=== PATIENT | female | born 1970 | race Two or more races ===

== ENCOUNTER 2023-11-02 12:47 | Inpatient (IN) | payer OTHER ==
[~2023-11-02] VITALS: Ht 162.6 cm; Wt 90.7 kg
[2023-11-02] MEDS ORDERED: LORAZEPAM 1 MG TABLET FOR AGITATION PO PRN (15:00)
[2023-11-02 16:00] VITALS: BP 118/77; TEMP 98.4; O2SAT 100
[2023-11-02 20:00] VITALS: BP 124/90; TEMP 98.2; O2SAT 100
[2023-11-02] MEDS: RISPERIDONE 2 MG PO SCH (21:16)
[2023-11-02] MEDS ORDERED: ZOLPIDEM TARTRATE 10 MG TABLET PO PRN (22:00)
[2023-11-03] MEDS: LEVOTHYROXINE 0.125 MG PO SCH (07:58)
[2023-11-03] MEDS: METOPROLOL 50 MG PO SCH (07:58)
[2023-11-03 08:00] VITALS: BP 135/88; TEMP 97.9; O2SAT 99
[2023-11-03] MEDS: HOME MED MISC AMLODIPINE 10MG PO SCH (08:27)
[2023-11-03 16:00] VITALS: BP 119/89; TEMP 98; O2SAT 100
[2023-11-03 20:00] VITALS: BP 134/95; TEMP 97.6; O2SAT 100
[2023-11-04 08:00] VITALS: BP 138/95; TEMP 98; O2SAT 99
[2023-11-04 20:00] VITALS: BP 130/87; TEMP 98.1; O2SAT 98
[2023-11-05 08:00] VITALS: BP 133/95; TEMP 97.9; O2SAT 98
[2023-11-05 20:34] VITALS: BP 124/87; TEMP 97.9; O2SAT 100
[2023-11-05] MEDS: RISPERDONE PO SCH (22:00)
[2023-11-06 08:00] VITALS: BP 115/81; TEMP 97.7; O2SAT 100
[2023-11-06 20:43] VITALS: BP 129/86; TEMP 97.9; O2SAT 100
[2023-11-07 08:00] VITALS: BP 130/90; TEMP 97.7; O2SAT 99
[2023-11-07 22:11] VITALS: BP 128/90; TEMP 97.9; O2SAT 99
[2023-11-08 08:00] VITALS: BP 127/91; TEMP 98.8; O2SAT 98
[2023-11-08 20:22] VITALS: BP 130/91; TEMP 98.2; O2SAT 98
[2023-11-08] MEDS: RISPERDONE PO SCH (21:05)
[2023-11-09 08:00] VITALS: BP 119/88; TEMP 97.8; O2SAT 98
[2023-11-09 16:00] VITALS: BP 124/88; TEMP 97.7; O2SAT 100
[2023-11-09 20:00] VITALS: BP 136/96; TEMP 98.1; O2SAT 97
[2023-11-10 08:00] VITALS: BP 142/91; TEMP 97.8; O2SAT 98
[2023-11-10] MEDS: HOME MED MISC AMLODIPINE 10MG PO SCH (08:33)
[2023-11-10 16:00] VITALS: BP 128/97; TEMP 97.3; O2SAT 97
[2023-11-10 20:00] VITALS: BP 122/95; TEMP 98.4; O2SAT 100
[2023-11-11 08:00] VITALS: BP 133/90; TEMP 97.8; O2SAT 98
[2023-11-11 20:13] VITALS: BP 136/86; TEMP 97.9; O2SAT 100
[2023-11-12 08:30] VITALS: BP 148/89; TEMP 97.9; O2SAT 99
[2023-11-12 20:00] VITALS: BP_SYST 139; BP_SYST 144; BP_DIAS 74; BP_DIAS 93; TEMP 97.5; O2SAT 100; O2SAT 97
[2023-11-13 08:00] VITALS: BP 134/99; TEMP 97.5; O2SAT 98
[2023-11-13 09:00] VITALS: BP 150/70; O2SAT 95
[2023-11-13 13:00] VITALS: BP 132/86; O2SAT 96
[2023-11-13 16:00] VITALS: BP 119/68; TEMP 97.5; O2SAT 99
[2023-11-13 20:00] VITALS: BP 129/99; TEMP 98.4; O2SAT 97
[2023-11-14 07:30] VITALS: BP 136/90; TEMP 97.9; O2SAT 100
[2023-11-17] MEDS ORDERED: LORAZEPAM 1 MG TABLET FOR AGITATION PO PRN (13:00)
[2023-11-17] MEDS ORDERED: ZOLPIDEM TARTRATE 10 MG TABLET PO PRN (13:00)
[2023-11-18] MEDS ORDERED: INVEST MED CVL-231-2002 PO SCH (10:00)
[2023-11-18] MEDS ORDERED: IBUPROFEN 200 MG TABLET PO PRN (15:00)
[2023-11-18] MEDS ORDERED: ACETAMINOPHEN ES 500 MG TABLET PO PRN (15:00)
[2023-11-18] MEDS ORDERED: MAG HYDROX/AL HYDROX/SIMETH 30 ML UDC PO PRN (15:00)
[2023-11-18] MEDS ORDERED: MAGNESIUM HYDROXIDE 30 ML UDC PO PRN (15:00)
[2023-11-23] MEDS ORDERED: LORAZEPAM 1 MG TABLET FOR AGITATION PO PRN (13:00)
[2023-11-23] MEDS ORDERED: ZOLPIDEM TARTRATE 10 MG TABLET PO PRN (13:00)
[2023-11-30] MEDS ORDERED: ZOLPIDEM TARTRATE 10 MG TABLET PO PRN (13:00)
[2023-11-30] MEDS ORDERED: LORAZEPAM 1 MG TABLET FOR AGITATION PO PRN (13:00)
[2023-12-08] MEDS ORDERED: LORAZEPAM 1 MG TABLET FOR AGITATION PO PRN (13:00)
[2023-12-08] MEDS ORDERED: ZOLPIDEM TARTRATE 10 MG TABLET PO PRN (13:00)
[2023-12-15] MEDS ORDERED: ZOLPIDEM TARTRATE 10 MG TABLET PO PRN (13:00)
[2023-12-15] MEDS ORDERED: LORAZEPAM 1 MG TABLET FOR AGITATION PO PRN (13:00)
[2023-12-22] MEDS ORDERED: ZOLPIDEM TARTRATE 10 MG TABLET PO PRN (13:00)
[2023-12-22] MEDS ORDERED: LORAZEPAM 1 MG TABLET FOR AGITATION PO PRN (13:00)
[2023-12-29] MEDS ORDERED: ZOLPIDEM TARTRATE 10 MG TABLET PO PRN (13:00)
[2023-12-29] MEDS ORDERED: LORAZEPAM 1 MG TABLET FOR AGITATION PO PRN (13:00)
== END 2023-11-14 10:55 | disposition home or self-care (01) | DRG 951 ==
LOC: GPS 14:36 → MED 11-12 07:02
PROVIDERS: ADMIT Psychiatry & Neurology Psychiatry; ATTEND Psychiatry & Neurology Psychiatry
DX: Z00.6 Encounter for examination for normal comparison and control in clinical research program (principal); F20.0 Paranoid schizophrenia; E03.9 Hypothyroidism, unspecified; I10 Essential (primary) hypertension; Z79.899 Other long term (current) drug therapy
CPT/HCPCS: G0378